=== PATIENT | male | born 1955 | race Caucasian/White ===

== ENCOUNTER 2020-08-18 09:00 | Emergency (ER) | payer MEDICARE ==
[~2020-08-18] VITALS: Ht 162.6 cm; Wt 59.0 kg
[2020-08-18 09:08] VITALS: BP 120/83
--- NOTE | 2020-08-18 09:14 | NUR ---
Pt eloped/walked out prior to MD assessment. States "I dont want to waste your time"
== END 2020-08-18 09:15 | disposition home or self-care (01) ==
LOC: ER 09:06
DX: Z53.21 Procedure and treatment not carried out due to patient leaving prior to being seen by health care provider (principal)

== ENCOUNTER 2020-11-03 18:37 | Emergency (ER) | payer MEDICARE ==
[~2020-11-03] VITALS: Ht 162.6 cm; Wt 49.9 kg
--- NOTE | 2020-11-03 18:49 | NUR ---
[id number] GLF. PT STS THAT HE HAD COUPLE OF BEER & FELL WHILE WALKING. PT AAOX3, VSS. RR EVEN & UNLABORED. DENIES CP, SOB, DIZZINESS, N/V AT THIS TIME. AWAITING EVAL BY [facility]. WILL CONT TO MONITOR.
--- NOTE | 2020-11-03 18:55 | NUR ---
DR. OAKES [facility] [employer] TESTED PT. PT ABLE TO AMB WITH STEADY GAIT.
[2020-11-03 20:22] LABS: BASOPHILS # (AUTO) 0.1 K/uL (0.0-0.2); BASOPHILS % (AUTO) 0.7 % (0.0-2.0); EOSINOPHILS % (AUTO) 3.3 % (0.0-6.0); HEMATOCRIT 39 % (39-51); LYMPHOCYTES # (AUTO) 2.5 K/uL (0.8-4.8); LYMPHOCYTES % (AUTO) 28.7 % (20.0-44.0); MEAN CORPUSCULAR HGB CONC 33 g/dl (31.0-36.0); MEAN CORPUSCULAR VOLUME 84 fL (80-96); MONOCYTES # (AUTO) 0.6 K/uL (0.1-1.30); MONOCYTES % (AUTO) 6.3 % (2.0-12.0); NEUTROPHILS # (AUTO) 5.3 K/uL (1.8-8.9); PLATELET COUNT (AUTO) 227 K/uL (150-450); RED BLOOD CELL COUNT(AUTO) 4.64 MIL/uL (4.5-6.0); WHITE BLOOD COUNT (AUTO) 8.7 K/uL (4.3-11.0)
[2020-11-03 20:40] LABS: ALANINE AMINOTRANSFERASE 32 U/L (12-78); ALBUMIN 3.3 g/dL (3.4-5.0); ALKALINE PHOSPHATASE 104 U/L (46-116); ASPARTATE AMINOTRANSFERASE 41 U/L (15-37); BILIRUBIN,DIRECT 0.1 mg/dL (0.0-0.2); BILIRUBIN,TOTAL 0.2 mg/dL (0.2-1.0); CALCIUM, SERUM 8.1 mg/dL (8.5-10.1); CARBON DIOXIDE 31 mmol/L (21-32); CHLORIDE 109 mmol/L (98-107); CREATININE 0.7 mg/dL (0.6-1.3); GLUCOSE 107 mg/dL (74-106); POTASSIUM 3.4 mmol/L (3.5-5.1); SODIUM SERUM 147 mmol/L (136-145); TOTAL PROTEIN, SERUM 6.9 g/dL (6.4-8.2); UREA NITROGEN, BLOOD 10 mg/dL (7-18)
--- NOTE | 2020-11-03 22:30 | NUR ---
Patient discharged to home in stable condition. Written and verbal after care instructions given. Patient verbalizes understanding of instruction.
[2020-11-03 23:08] VITALS: BP 128/79
== END 2020-11-03 22:30 | disposition home or self-care (01) ==
LOC: ER 18:46
DX: S12.190A Other displaced fracture of second cervical vertebra, initial encounter for closed fracture (principal); S02.0XXA Fracture of vault of skull, initial encounter for closed fracture; S02.11GA Other fracture of occiput, right side, initial encounter for closed fracture; F10.129 Alcohol abuse with intoxication, unspecified; R51.9 Headache, unspecified; F17.200 Nicotine dependence, unspecified, uncomplicated; Y90.8 Blood alcohol level of 240 mg/100 ml or more; Z88.0 Allergy status to penicillin; Z60.2 Problems related to living alone; W18.39XA Other fall on same level, initial encounter; Y93.89 Activity, other specified; Y92.89 Other specified places as the place of occurrence of the external cause; Y99.8 Other external cause status
CPT/HCPCS: 36415; 70450-TC; 71045-TC; 72125-TC; 80048-TC; 80076-TC; 84484-TC; 85025-TC; 87081-TC; G0480

== ENCOUNTER 2023-06-22 00:38 | Emergency (ER) | payer MEDICARE, OTHER ==
[~2023-06-22] VITALS: Ht 162.6 cm; Wt 70.3 kg
[~2023-06-22 00:38] MED LIST: CHLO25CA22 PO
[2023-06-22 03:24] VITALS: BP 140/91; TEMP 98.5; O2SAT 96
== END 2023-06-22 03:24 | disposition home or self-care (01) ==
LOC: ER 00:51
DX: S00.93XA Contusion of unspecified part of head, initial encounter (principal); Z88.0 Allergy status to penicillin; Z60.2 Problems related to living alone; W22.8XXA Striking against or struck by other objects, initial encounter; Y93.89 Activity, other specified; Y92.89 Other specified places as the place of occurrence of the external cause; Y99.8 Other external cause status
CPT/HCPCS: 70450-TC